=== PATIENT | female | born 1990 | race Caucasian/White ===

== ENCOUNTER → 2020-01-10 | Outpatient (CLI) | payer BC ==
[~2020-01-10] MED LIST: MOTRIN 800800 MG/TAB PO; NATURAL IRON65 MG; PERCOCET 325 MG1 TA2 PO; PRENATAL TABLET PO; TYLENOL 325MG325 MG PO
== END ==
LOC: COL.LAB 09:00
DX: Z20.828 Contact with and (suspected) exposure to other viral communicable diseases (principal)

== ENCOUNTER 2020-01-11 09:55 | Inpatient (IN) | payer BC ==
[~2020-01-11] VITALS: Ht 165.2 cm; Wt 123.2 kg
[2020-01-11] VITALS (28 sets, daily range): BP systolic 82–129; BP diastolic 40–83; PULSE 65–112; TEMP 97.9–98.2
--- NOTE | 2020-01-11 09:30 | NUR ---
929- Pt arrives on unit ambulatory with complaints of SROM at 0845 this morning. 937- Pt into bed. EFM and TOCO on and tracing. VSS. Pt denies contractions, VB. +FM. 944- SVE by this RN, Amniotrace positive, clear fluid noted. /-.
[2020-01-11] MEDS ORDERED: PRENATAL TABLET PO (10:17)
[2020-01-11] MEDS ORDERED: NATURAL IRON65 MG (10:17)
[2020-01-11] MEDS ORDERED: TYLENOL 325MG325 MG PO (10:18)
[2020-01-11 10:45] LABS: BASO % 0.3 % (0.0-2.0); EOS # 0.1 (0.0-0.7); EOS % 0.6 % (0-4.0); GRAN % 76.8 % (42.2-75.2); HEMOGLOBIN 12.4 g/dl (12.5-16.0); LYMPH # 2.5 (1.2-3.4); LYMPH % 15.7 % (20.0-51.0); MEAN CELL VOLUME 91 fl (80.0-100.0); MEAN CORPUSCULAR HEMOGLOBIN 31 pg (27.0-31.0); MEAN CORPUSCULAR HGB CONC 35 g/dl (33.0-37.0); MEAN PLATELET VOLUME 10.4 fl (7.4-10.4); MONO % 6.2 % (1.7-9.3); PLATELET COUNT 258 K/mm3 (130-400); RED BLOOD COUNT 3.96 M/mm3 (4.10-5.30)
[2020-01-11 10:49] LABS: HEMATOCRIT 35.9 % (37.0-47.0)
--- NOTE | 2020-01-11 13:43 | NUR ---
DR CALABRESE STATED TO PATIENT THAT HE WANTED TO DO A SECTION AT 1246 PATIENT WALKED TO THE OR AT 1259
[2020-01-12 02:15] VITALS: BP 110/66; PULSE 100; TEMP 98.4
[2020-01-12 07:20] VITALS: BP 124/47; PULSE 103; TEMP 97.9
[2020-01-12] MEDS ORDERED: MOTRIN 800800 MG/TAB PO (09:04)
[2020-01-12] MEDS ORDERED: PERCOCET 325 MG1 TA2 PO (09:05)
--- NOTE | 2020-01-12 10:19 | NUR ---
Initial visit; Parents thanked Building Official for offering congratulations and God's blessings to their family for the of their son. Building Official thanked family for choosing [facility].
[2020-01-12 16:15] VITALS: BP 102/61; PULSE 87; TEMP 97.5
[2020-01-12 20:15] VITALS: BP 112/51; PULSE 87; TEMP 98.9
[2020-01-13 07:50] VITALS: BP 107/74; PULSE 84; TEMP 98.2
[2020-01-13 13:00] VITALS: BP 114/66; PULSE 89; TEMP 97.8
[2020-01-13 16:00] VITALS: BP 105/68; PULSE 75; TEMP 97.9
[2020-01-13 20:00] VITALS: BP 110/59; PULSE 82; TEMP 98.3
[2020-01-14 09:26] VITALS: BP 115/65; PULSE 85; TEMP 98.1
--- NOTE | 2020-01-14 10:20 | NUR ---
Patient given dc instructions. Denies questions. escorted off unit.
== END 2020-01-14 10:20 | disposition home or self-care (01) | DRG 788 ==
LOC: LDRO 09:55 → LDR 10:33 → OB 14:05
PROVIDERS: Obstetrics & Gynecology; ADMIT Obstetrics & Gynecology
PROC: 10D00Z1 Extraction of Products of Conception, Low, Open Approach (ICD-10-PCS; principal; 2020-01-12)
DX: O99.824 Streptococcus B carrier state complicating childbirth (principal); Z37.0 Single live birth; O99.214 Obesity complicating childbirth; E66.9 Obesity, unspecified; O69.81X0 Labor and delivery complicated by cord around neck, without compression, not applicable or unspecified; O34.13 Maternal care for benign tumor of corpus uteri, third trimester; D25.9 Leiomyoma of uterus, unspecified; Z3A.39 39 weeks gestation of pregnancy
CPT/HCPCS: J0690; J1885; J2370; J2405; J2540; J7120

== ENCOUNTER 2023-09-09 04:12 | Outpatient (CLI) | payer BC ==
[~2023-09-09] VITALS: Ht 165.1 cm; Wt 119.5 kg
[2023-09-09] VITALS (12 sets, daily range): BP systolic 105–125; BP diastolic 59–76; PULSE 75–100; TEMP 98.9
[2023-09-09] MEDS ORDERED: LR 1,000 ML IV PRN (04:30)
--- NOTE | 2023-09-09 04:50 | NUR ---
FHT's with recurrent variables to 80's. Difficult to maintain FHR tracing r/t pt's body habitus. To WL, this RN continues in room, adjusting monitors.
--- NOTE | 2023-09-09 05:11 | NUR ---
FHT's with variable 50's.
--- NOTE | 2023-09-09 07:17 | NUR ---
PT IN LEFT LATERAL, CONTINUES A LABOR CHECK. ABLE TO TALK THROUGH CONTRACTIONS. RECURRENT VARIABLES, DECELERATION INTO THE 70'S WITH SUPINE POSITION DURING SVE. MODERATE VARIABILITY AT THIS TIME. MATERNAL VITAL SIGNS STABLE. DIFFICULTY TRACING TOCO DUE TO MATERNAL PER : CONTINUE WITH LABOR CHECK, RECHECK SVE @ 0745 AND CALL WITH UPDATE.
--- NOTE | 2023-09-09 07:42 | NUR ---
REPEAT SVE UNCHANGED, /. RECURRENT VARIABLES CONTINUE. LR BOLUS INFUSED. PT REMAINS A LABOR CHECK. PER : "CONTINUE WITH LABOR CHECK, I WILL PULL UP THE STRIP AND REVIEW IT FROM HOME."
--- NOTE | 2023-09-09 08:01 | NUR ---
SVE UNCHANGED. /2. RECURRENT VARIABLES AND EARLY DECELERATIONS WITH EVERY CONTRACTION. ATTEMPTING MULTIPLE REPOSITIONING CHANGES. LR INFUSING. CONTRACTIONS Q4-6 MINUTES APART WITH PALPATION, MODERATE. PER : "I WILL PULL UP HER STRIP AGAIN." NO NEW ORDERS AT THIS TIME.
--- NOTE | 2023-09-09 08:10 | NUR ---
PER : AFTER FURTHER REVIEW OF THE STRIP. PT MAY DC HOME. CONTINUE WITH PLANS FOR REPEAT CSECTION IN THE AM, AND CALL OFFICE WITH FURTHER CONCERNS. "I DONT SEE ANY IMMEDIATE REASON I'D NEED TO COME IN AND CSECTION HER AT THIS TIME." PT AGREEABLE TO POC.
--- NOTE | 2023-09-09 08:26 | NUR ---
PT EDUCATED IN DEPTH ON DISCHARGE INSTRUCTIONS INCLUDING TO RETURN TO THE HOSPITAL WITH DECREASED MOVEMENT, INCREASED CONTRACTIONS THAT ARE 2-3 MINUTES APART AND WORSENING IN PAIN, OR WITH LEAKING OF FLUID OR BLOOD. PT AGREEABLE TO PLAN OF CARE. AMBULATORY FROM UNIT WITH SPOUSE AT THIS TIME IN STABLE CONDITION.
== END 2023-09-09 08:26 ==
LOC: LDRO 04:12
DX: O47.1 False labor at or after 37 completed weeks of gestation (principal); Z3A.39 39 weeks gestation of pregnancy
CPT/HCPCS: J7120

== ENCOUNTER 2023-09-10 10:06 | Inpatient (IN) | payer BC ==
[~2023-09-10] VITALS: Ht 165.1 cm; Wt 119.5 kg
[2023-09-10] VITALS (20 sets, daily range): BP systolic 76–132; BP diastolic 41–77; PULSE 67–118; TEMP 98–98.9
[2023-09-10] MEDS ORDERED: LR 1,000 ML IV SCH ×2 (11:15)
[2023-09-10] MEDS ORDERED: Ondansetron 4 MG/2 ML VIAL IV SCH (11:15)
[2023-09-10] MEDS ORDERED: Oxytocin 10 UNITS/ML VIAL ONE (11:21)
[2023-09-10] MEDS ORDERED: ePHEDrine 50 MG/ML VIAL ONE (11:21)
[2023-09-10] MEDS ORDERED: Phenylephrine 10 MG/ML VIAL ONE (11:21)
[2023-09-10] MEDS ORDERED: NS 10 ML IV ONE ×2 (11:25→12:49)
[2023-09-10] MEDS ORDERED: Azithromycin 500 MG in NS 250 ML IV ONE (11:30)
[2023-09-10] MEDS ORDERED: Tranexamic Acid 1,000 MG in NS 100 ML IV ONE (11:30)
[2023-09-10] MEDS ORDERED: LR 1,000 ML IV PRN (11:45)
[2023-09-10] MEDS ORDERED: Loratadine 10 MG TAB PO PRN (11:45)
[2023-09-10] MEDS ORDERED: Naloxone 0.4 MG/ML VIAL IV PRN (11:45)
[2023-09-10] MEDS ORDERED: Ondansetron 4 MG/2 ML VIAL IV PRN (11:45)
[2023-09-10] MEDS ORDERED: Magnes Hydrox (MOM) 80 MG/ML 30 ML CUP PO PRN (11:45)
[2023-09-10] MEDS ORDERED: Measles/Mumps/Rubella Virus Vaccine Live w Diluent 0.5 ML VIAL SQ SCH (11:45)
[2023-09-10] MEDS ORDERED: oxyCODONE 5 MG TAB PO PRN (11:45)
[2023-09-10] MEDS ORDERED: Acetaminophen 500 MG TAB PO PRN (11:45)
[2023-09-10] MEDS ORDERED: Tranexamic Acid 1,000 MG/10 ML VIAL ONE (12:16)
[2023-09-10 12:17] LABS: BASO % 0.2 % (0.0-2.0); EOS % 0.1 % (0.0-4.0); GRAN # 14.1 K/mm3 (1.4-6.5); GRAN % 81.8 % (42.2-75.2); HEMOGLOBIN 12.1 g/dl (12.5-16.0); LYMPH # 2.3 K/mm3 (1.2-3.4); LYMPH % 13.6 % (20.0-51.0); MEAN CELL VOLUME 97 fl (80.0-100.0); MEAN CORPUSCULAR HEMOGLOBIN 33 pg (27-31); MEAN CORPUSCULAR HGB CONC 34 g/dl (33.0-37.0); MEAN PLATELET VOLUME 10.2 fl (7.4-10.4); MONO # 0.6 K/mm3 (0.1-0.6); MONO % 3.7 % (1.7-9.3); PLATELET COUNT 200 K/mm3 (130-400); RED BLOOD COUNT 3.69 M/mm3 (4.10-5.30); REDCELL DISTRIBUTION WIDTH-CV 13.3 % (11.5-14.5)
[2023-09-10 12:18] LABS: HEMATOCRIT 35.6 % (37.0-47.0)
[2023-09-10] MEDS ORDERED: Ketorolac 30 MG/ML VIAL ONE (12:25)
[2023-09-10] MEDS ORDERED: Lidocaine PF 2% (20 MG/ML) 5 ML VIAL ONE (12:44)
[2023-09-10] MEDS ORDERED: dexAMETHasone 10 MG/ML VIAL ONE (12:49)
[2023-09-10] MEDS ORDERED: Sennosides/Docusate 8.6-50 MG TAB PO SCH (17:00)
[2023-09-10] MEDS ORDERED: Ibuprofen 800 MG TAB PO SCH (17:31)
[2023-09-10] MEDS ORDERED: traZODone 50 MG TAB PO PRN (21:00)
[2023-09-11 04:15] VITALS: BP 108/53; PULSE 94; TEMP 98.5
--- NOTE | 2023-09-11 07:04 | NUR ---
AT BEDSIDE, PT IN STABLE CONDITION, PLANS TO DC THIS MORNING TO GO TO [place] AND BE REUNITED WITH HER INFANT. PAIN WELL CONTROLLED. LOCHIA SCANT. PT WANTING TO LEAVE [place].
[2023-09-11 07:32] VITALS: BP 138/72; PULSE 74; TEMP 98.6
--- NOTE | 2023-09-11 07:52 | NUR ---
ALL DC PAPERWORK REVIEWED INCLUDING FOLLOW UP APPOINTMENTS AND DC MEDICATIONS. PER , PT IS TO SHOWER THIS EVENING AND REMOVE DRESSING, NOTIFY OB WITH ANY REDNESS/DRAINAGE/ODOR OR CONCERNS. PT AMBULATORY AROUND ROOM, LOCHIA REMAINS SCANT AND FUNDUS FIRM. PT'S MOTHER WILL BE PICKING HER UP SHORTLY TO TAKE HER TO [place].
== END 2023-09-11 08:10 | disposition home or self-care (01) | DRG 788 ==
LOC: OB → LDR 10:06 → OB 11:38
PROVIDERS: ADMIT Obstetrics & Gynecology
PROC: 10D00Z1 Extraction of Products of Conception, Low, Open Approach (ICD-10-PCS; principal; 2023-09-10)
DX: O34.211 Maternal care for low transverse scar from previous cesarean delivery (principal); O48.0 Post-term pregnancy; Z3A.40 40 weeks gestation of pregnancy; Z37.0 Single live birth; O99.214 Obesity complicating childbirth; O34.13 Maternal care for benign tumor of corpus uteri, third trimester; O32.1XX0 Maternal care for breech presentation, not applicable or unspecified; O69.81X0 Labor and delivery complicated by cord around neck, without compression, not applicable or unspecified; D25.2 Subserosal leiomyoma of uterus; O99.02 Anemia complicating childbirth; D64.9 Anemia, unspecified; O76 Abnormality in fetal heart rate and rhythm complicating labor and delivery
CPT/HCPCS: J0456; J0665; J0690; J1100; J1885; J2371; J2405; J2590; J2765; J7050; J7120